=== PATIENT | male | born 1970 | race Caucasian/White ===

== ENCOUNTER 2019-06-16 07:12 | Day surgery (SDC) | payer BC ==
[2019-06-13 11:20] VITALS: BMI 39.5
[~2019-06-16 07:12] MED LIST: DEXAMETHASONE SOD PHOSPHATE 10 MG/ML 1 ML VIAL IV ONE; HEPARIN SODIUM,PORCINE 5,000 UNIT/ML 1 ML VIAL SQ ONE; HYDROmorphone 0.5 MG/0.5 ML SYRINGE IVP PRN; LACTATED RINGERS 1,000 ML IV SCH; MIDAZOLAM 2 MG/2 ML VIAL IV PRN; ONDANSETRON 4 MG/2 ML VIAL IVP ONE
[2019-06-16 07:34] VITALS: RESP 16
[2019-06-16] MEDS ORDERED: LIDOCAINE 1% 20 ML VIAL (10MG/ML) FOR IV START INTRADERMA ONE (07:43)
--- NOTE | 2019-06-16 08:52 | P.ANPRN ---
Procedure Note - Anesthesia - Nerve Block Performed Left Transversus Abdominis Single Time Out Performed: Yes Date of Procedure: 06/16/19 Procedure Start Time: : Procedure Stop Time: :32 Location of Patient Procedure: PreOp Indication: Acute Post-Operative Pain, Requested by Surgeon Specifically requested for management of pain by DrAyla: Joshua Mora Sedation Type: Sedate with meaningful contact maintained Preparation: Sterile Prep Position: Supine Catheter: None Needle Types: Pajunk Needle Gauge: 20 Ultrasound used to visualize needle placement: Yes Ultrasound used to observe medication spread: Yes Injectate: Other (see comment) (0.25% ropivacaine/0.5% lidocaine 30 mL) Adjunct: Epinephrine (see comment for dilution ratio) (1/200,000) Blood Aspirated: No Pain Paresthesia on Injection Noted: No Resistance on Injection: Normal Image Stored and Saved: Yes Events: Uneventful and Well Tolerated
--- NOTE | 2019-06-16 09:09 | P.GSHP ---
History of Present Illness H&P Date: 06/16/19 Chief Complaint: Left lower quadrant ventral hernia This a 48-year-old male who presents today for open repair of left lower quadrant ventral hernia. Patient developed tender mass in his left lower quadrant. Past Medical History Past Medical History: No Reported History History of Any Multi-Drug Resistant Organisms: None Reported Past Surgical History: Hernia Repair Past Anesthesia/Blood Transfusion Reactions: No Reported Reaction Past Psychological History: ADD/ADHD, Anxiety, Bipolar, Depression, PTSD Smoking Status: Never smoker Past Alcohol Use History: None Reported Past Drug Use History: None Reported - Past Family History Mother Family Medical History: No Reported History Medications and Allergies Home Medications Medication Instructions Recorded Confirmed Type Citalopram Hydrobromide [CeleXA] 40 mg PO HS 06/13/19 06/13/19 History Ziprasidone [Geodon] 80 mg PO HS 06/13/19 06/13/19 History lamoTRIgine [LaMICtal] 150 mg PO HS 06/13/19 06/13/19 History Allergies Allergy/AdvReac Type Severity Reaction Status Date / Time codeine Allergy Swelling Verified 06/16/19 07:27 lisdexamfetamine Allergy Swelling Verified 06/16/19 07:27 [From Vyvanse] Surgical - Exam Vital Signs Temp Pulse Resp BP Pulse Ox 98.6 F 70 16 119/71 94 L 06/16/19 07:33 06/16/19 07:33 06/16/19 07:33 06/16/19 07:33 06/16/19 07:33 - General well developed, well nourished, no distress - Eyes PERRL - ENT normal pinna - Neck no masses - Respiratory normal expansion - Cardiovascular Rhythm: regular - Abdomen Left lower quadrant ventral hernia. We'll perform open repair. Abdomen: soft, non tender Assessment and Plan Assessment: Left lower quadrant ventral hernia. We'll perform open repair.
[2019-06-16] MEDS ORDERED: ROPIVACAINE 5 MG/ML 30 ML VIAL ONE (09:14)
[2019-06-16] MEDS ORDERED: PROPOFOL 10 MG/ML 20 ML VIAL IV ONE (09:14)
[2019-06-16] MEDS ORDERED: LIDOCAINE 1%-EPI 1:100,000 20 ML VIAL ONE (09:14)
[2019-06-16] MEDS ORDERED: LIDOCAINE 1% INJ 10MG/ML (20 ML MDV) ONE (09:14)
[2019-06-16] MEDS ORDERED: GLYCOPYRROLATE 0.2 MG/ML 2 ML VIAL ONE (09:14)
[2019-06-16] MEDS ORDERED: fentaNYL (PF) 50 MCG/ML 2 ML AMP ONE (09:14)
[2019-06-16] MEDS ORDERED: NEOSTIGMINE 1 MG/ML 10 ML VIAL ONE (09:14)
[2019-06-16] MEDS ORDERED: MIDAZOLAM 2 MG/2 ML VIAL ONE (09:14)
[2019-06-16] MEDS ORDERED: SUCCINYLCHOLINE CHLORIDE 100 MG/5 ML SYR IV ONE (09:14)
[2019-06-16] MEDS ORDERED: KETOROLAC 30 MG/ML 1 ML VIAL ONE (09:14)
[2019-06-16 10:10] VITALS: TEMP 98.4
--- NOTE | 2019-06-16 10:12 | P.OP ---
Date of Procedure: 06/16/19 Preoperative Diagnosis: Left lower quadrant ventral hernia Postoperative Diagnosis: Left lower quadrant lipoma Procedure(s) Performed: Excision of left lower quadrant lipoma Anesthesia: CARMEN Surgeon: Joshua Mora Estimated Blood Loss (ml): 5 Pathology: other (Lipoma) Condition: stable Disposition: PACU Description of Procedure: The patient's placed on the operative table in the supine position. He received general anesthesia. His abdomen was prepped and draped in usual sterile fashion. The mass was located in the left lateral lower quadrant. The skin was incised over the mass using blunt and sharp dissection with cautery the subcutaneous tissues were divided and the mass was dissected free. The mass appeared to be a lipoma. The mass measured 5 x 10 x 5 cm. The lipoma was dissected free with cautery. The wound was hemostased. There is no bleeding seen. The skin was then closed interrupted 3-0 Monocryl suture. Dermabond was applied.
[2019-06-16] MEDS ORDERED: LACTATED RINGERS 1,000 ML IV ONE ×2 (10:19)
[2019-06-16 11:10] VITALS: BP 130/72; PULSE 63
== END 2019-06-16 11:23 | disposition home or self-care (01) ==
LOC: OR 07:12
PROVIDERS: ATTEND Surgery
DX: D17.1 Benign lipomatous neoplasm of skin and subcutaneous tissue of trunk (principal); F90.9 Attention-deficit hyperactivity disorder, unspecified type; F41.9 Anxiety disorder, unspecified; F31.9 Bipolar disorder, unspecified; F43.10 Post-traumatic stress disorder, unspecified; Z79.899 Other long term (current) drug therapy; Z88.5 Allergy status to narcotic agent; Z88.8 Allergy status to other drugs, medicaments and biological substances
CPT/HCPCS: 64486; 88304; 22903; J2250; J1644; J1100; J2710; J0690; J2405; J2001; J3010; J1885; J2795; J0330; J2704

== ENCOUNTER 2021-05-10 07:53 | Day surgery (SDC) | payer BC ==
[2021-05-07 13:36] VITALS: BMI 36.7
[~2021-05-10 07:53] MED LIST changes: -DEXAMETHASONE SOD PHOSPHATE 10 MG/ML 1 ML VIAL IV ONE; -HEPARIN SODIUM,PORCINE 5,000 UNIT/ML 1 ML VIAL SQ ONE; -HYDROmorphone 0.5 MG/0.5 ML SYRINGE IVP PRN; -MIDAZOLAM 2 MG/2 ML VIAL IV PRN; -ONDANSETRON 4 MG/2 ML VIAL IVP ONE
[2021-05-10 08:08] VITALS: TEMP 97.1
[2021-05-10] MEDS ORDERED: LACTATED RINGERS 1,000 ML IV ONE (08:23)
--- NOTE | 2021-05-10 08:43 | P.GSHP ---
History of Present Illness H&P Date: 05/10/21 Chief Complaint: Epigastric abdominal pain, screening colonoscopy Is a 50-year-old male who presents today for EGD and screening colonoscopy. He's had complaints of epigastric abdominal pain. Past Medical History Past Medical History: No Reported History History of Any Multi-Drug Resistant Organisms: None Reported Past Surgical History: Hernia Repair Past Anesthesia/Blood Transfusion Reactions: No Reported Reaction Past Psychological History: ADD/ADHD, Anxiety, Bipolar, Depression, PTSD Smoking Status: Current some day smoker Past Alcohol Use History: None Reported Additional Past Alcohol Use History / Comment(s): Patients states will have an occasional cigar. Past Drug Use History: Marijuana Additional Drug Use History / Comment(s): "Frequent Marijuana use." No use 24 hrs prior to procedure. - Past Family History Mother Family Medical History: No Reported History Father Family Medical History: Cancer Additional Family Medical History / Comment(s): Lymphatic cancer. Medications and Allergies Home Medications Medication Instructions Recorded Confirmed Type Citalopram Hydrobromide [CeleXA] 40 mg PO DAILY 06/13/19 05/07/21 History lamoTRIgine [LaMICtal] 150 mg PO DAILY 06/13/19 05/07/21 History Famotidine 40 mg PO DAILY PRN 05/07/21 05/07/21 History LORazepam 0.5 mg PO DAILY PRN 05/07/21 05/07/21 History Allergies Allergy/AdvReac Type Severity Reaction Status Date / Time codeine Allergy Swelling Verified 05/07/21 13:22 lisdexamfetamine Allergy Swelling Verified 05/07/21 13:22 [From Chris] Surgical - Exam Vital Signs Temp Pulse Resp BP Pulse Ox 97.1 F L 68 18 127/83 97 05/10/21 08:07 05/10/21 08:07 05/10/21 08:07 05/10/21 08:07 05/10/21 08:07 - General well developed, well nourished, no distress - Eyes PERRL - ENT normal pinna - Neck no masses - Respiratory normal expansion - Cardiovascular Rhythm: regular - Abdomen Abdomen: soft, non tender Assessment and Plan Assessment: Epigastric abdominal pain we'll perform EGD. We'll also perform screening colonoscopy.
[2021-05-10] MEDS ORDERED: PROPOFOL 10 MG/ML 20 ML VIAL IV ONE (08:48)
--- NOTE | 2021-05-10 09:08 | P.OP ---
Date of Procedure: 05/10/21 Preoperative Diagnosis: Epigastric pain Screening colonoscopy Postoperative Diagnosis: Antral gastritis Sliding hiatal hernia Mild esophagitis Normal colonoscopy Procedure(s) Performed: EGD Colonoscopy Anesthesia: MAC Surgeon: Joshua Mora Pathology: other (Antrum, esophagus) Condition: stable Disposition: PACU Description of Procedure: No PROCEDURE: The patient was placed on the endoscopy table in the lateral position. Digital rectal examination was performed which revealed no abnormalities. The prostate was symmetrical without nodules. Flexible colonoscope was then placed in the patient's anus and passed throughout the entire colon. The ileocecal valve was visualized. The cecum, ascending, transverse, descending and sigmoid colon were normal. The rectum was normal as well. There were no masses, polyps or diverticula noted in the entire colon. X, the gastroscope placed oropharynx passed in the esophagus into the stomach. Scope was then placed through the pylorus. The first and second portion of the duodenum appeared normal. Scope was then brought back the antrum and this appeared mildly inflamed. A biopsies performed. Scope was then retroflexed and the remainder of the stomach appeared normal. There was a moderate size sliding hiatal hernia. The GE junction was at 40 cm per the distal esophagus was minimal inflamed a biopsy performed. The proximal esophagus appeared normal. Scope was withdrawn for patient.
[2021-05-10 09:41] VITALS: BP 107/76; PULSE 63; RESP 20
== END 2021-05-10 09:46 | disposition home or self-care (01) ==
LOC: ORWHC2ENDO 07:53
PROVIDERS: ATTEND Surgery
DX: K29.50 Unspecified chronic gastritis without bleeding (principal); Z12.11 Encounter for screening for malignant neoplasm of colon; K44.9 Diaphragmatic hernia without obstruction or gangrene; K20.90 Esophagitis, unspecified without bleeding; F31.9 Bipolar disorder, unspecified; F43.10 Post-traumatic stress disorder, unspecified; F17.210 Nicotine dependence, cigarettes, uncomplicated; F41.9 Anxiety disorder, unspecified; F98.8 Other specified behavioral and emotional disorders with onset usually occurring in childhood and adolescence; Z88.5 Allergy status to narcotic agent
CPT/HCPCS: 88305; 43239; J2704; G0121

== ENCOUNTER → 2022-09-12 | Outpatient (CLI) | payer BC ==
--- NOTE | 2022-09-12 11:46 | CA ---
Exercise Stress Test Report Name: Mauricio Hernandez Exam Date: 09/12/2022 11:05 Exam Location: [facility] Stress Ht (in): 69 Wt (lb): 260 BSA: 2.31 Ordering Phys: Urvashi Goodrich DO Referring Phys: NUZHAT,, Technologist: Jim Melendrez Age: 51 Gender: M : 1970 Procedure CPT: Indications: R07.89 ICD-10 Codes: Patient History: CHEST PAIN, PALPITATIONS, CURRENT SMOKER (MARIJUANA DAILY) Medications: LOMITRIGINE, FLOMOTADINE Meds past 24 hrs: Pretest Chest Pain: STRESS TEST Yaw Protocol Exercise Duration (min:sec): 07:[address] Depressions (mm): Angina Score: Watkins Score: Resting HR (bpm): 79 Peak HR (bpm): 150 Resting BP (mmHg): 116 / 88 Peak BP (mmHg): 153 / 71 MPHR: 168 Target HR: 143 % MPHR: 89 METS: 8.5 Total Dose: Peak Dose: Atropine: Double Product: 84734 BP Response: Stress Termination: MAX EXERTION/TARGET HR Stress Symptoms: FATIGUE Stress Summary: ECG ANALYSIS Resting ECG: Normal sinus rhythm normal axis normal intervals Stress ECG: Patient exercised on Yaw protocol for 7 minutes achieving 8 mets 85% of predicted maximal heart rate without chest pain or diagnostic ST segment depression CONCLUSIONS Average exercise tolerance Negative stress test by EKG criteria Dr. Santi Mckenna MD (Electronically Signed) Final Date: 12 September 2022 11:45
== END | disposition home or self-care (01) ==
LOC: RADNMMAIN 10:39
PROVIDERS: ATTEND Family Medicine
DX: R07.89 Other chest pain (principal)
CPT/HCPCS: 93017

== ENCOUNTER 2023-03-12 09:17 | Day surgery (SDC) | payer BC ==
[2023-03-06 09:13] VITALS: BMI 39.0
[2023-03-12 09:32] VITALS: RESP 16; TEMP 97.9
[2023-03-12] MEDS ORDERED: PROPOFOL 10 MG/ML 20 ML VIAL IV ONE (09:55)
--- NOTE | 2023-03-12 10:00 | P.GSHP ---
History of Present Illness H&P Date: 03/12/23 Chief Complaint: Screening colonoscopy This a 52-year-old male presents today for screening colonoscopy. Patient denies a significant GI complaints. Past Medical History Past Medical History: GERD/Reflux Additional Past Medical History / Comment(s): rash lower back, arthritis in thumbs., family hx colon cancer. History of Any Multi-Drug Resistant Organisms: None Reported Past Surgical History: Hernia Repair Additional Past Surgical History / Comment(s): hernia repair x2- umbilical , lipomas Past Anesthesia/Blood Transfusion Reactions: No Reported Reaction Past Psychological History: ADD/ADHD, Anxiety, Bipolar, Depression, PTSD, Schizoaffective Disorder Smoking Status: Current some day smoker, Vaper Past Alcohol Use History: Rare Additional Past Alcohol Use History / Comment(s): occasional cigar. Past Drug Use History: Marijuana Additional Drug Use History / Comment(s): current marijuana use - Past Family History Mother Family Medical History: No Reported History Additional Family Medical History / Comment(s): pts grandfather=colon cancer Father Family Medical History: Cancer Additional Family Medical History / Comment(s): Lymphatic cancer.-due to chemical spill Medications and Allergies Home Medications Medication Instructions Recorded Confirmed Type lamoTRIgine [LaMICtal] 150 mg PO W/SUPPER 06/13/19 03/06/23 History Famotidine 40 mg PO W/SUPPER PRN 05/07/21 03/06/23 History LORazepam [Ativan] 1 mg PO DIRECTED PRN 03/06/23 03/06/23 History Pediatric Multivitamin No.30 1 tab PO DAILY 03/06/23 03/06/23 History [Multivitamin Children's Gummies] Venlafaxine HCl 75 mg PO W/SUPPER 03/06/23 03/06/23 History risperiDONE 0.5 mg PO W/SUPPER 03/06/23 03/06/23 History Allergies Allergy/AdvReac Type Severity Reaction Status Date / Time codeine Allergy Facial Verified 03/12/23 09:28 Swelling lisdexamfetamine Allergy Swelling Verified 03/12/23 09:28 [From Vyvanse] of feet Surgical - Exam Vital Signs Temp Pulse Resp BP Pulse Ox 97.9 F 78 16 137/79 96 03/12/23 09:31 03/12/23 09:31 03/12/23 09:31 03/12/23 09:31 03/12/23 09:31 - General well developed, well nourished, no distress - Eyes PERRL - ENT normal pinna - Neck no masses - Respiratory normal expansion - Cardiovascular Rhythm: regular - Abdomen Abdomen: soft, non tender Assessment and Plan Assessment: We'll perform screening colonoscopy
--- NOTE | 2023-03-12 10:13 | P.OP ---
Date of Procedure: 03/12/23 Preoperative Diagnosis: Screening colonoscopy Postoperative Diagnosis: Normal colonoscopy Procedure(s) Performed: Colonoscopy Anesthesia: CARMEN Surgeon: Joshua Mora Pathology: none sent Condition: stable Disposition: PACU Description of Procedure: PROCEDURE: The patient was placed on the endoscopy table in the lateral position. Digital rectal examination was performed which revealed no abnormalities. The prostate was symmetrical without nodules. Flexible colonoscope was then placed in the patient's anus and passed throughout the entire colon. The ileocecal valve was visualized. The cecum, ascending, transverse, descending and sigmoid colon were normal. The rectum was normal as well. There were no masses, polyps or diverticula noted in the entire colon. SUMMARY OF FINDINGS: Normal colonoscopy.
[2023-03-12 10:49] VITALS: BP 120/74; PULSE 71
== END 2023-03-12 10:50 | disposition home or self-care (01) ==
LOC: ORWHC2ENDO 09:17
PROVIDERS: ATTEND Surgery
DX: Z12.11 Encounter for screening for malignant neoplasm of colon (principal); K21.9 Gastro-esophageal reflux disease without esophagitis; F41.9 Anxiety disorder, unspecified; F17.200 Nicotine dependence, unspecified, uncomplicated; Z80.0 Family history of malignant neoplasm of digestive organs; Z88.5 Allergy status to narcotic agent; Z79.899 Other long term (current) drug therapy
CPT/HCPCS: 45378; J2704

== ENCOUNTER 2024-09-05 09:11 | Day surgery (SDC) | payer BC, MEDICARE ==
[2024-08-31 15:43] VITALS: BMI 42.5
[~2024-09-05 09:11] MED LIST changes: +LIDOCAINE 1% (10MG/ML) FOR IV START INTRADERMA PRN
[2024-09-05] MEDS: LACTATED RINGERS 500 ML IV ONE (09:20)
[2024-09-05 09:34] VITALS: TEMP 97.4
[2024-09-05] MEDS ORDERED: PROPOFOL 10 MG/ML 20 ML VIAL IV ONE (09:40)
[2024-09-05] MEDS ORDERED: LIDOCAINE 1% INJ 10MG/ML (20 ML MDV) ONE (09:40)
--- NOTE | 2024-09-05 10:09 | P.PCN ---
Date of Procedure: 09/05/24 Preoperative Diagnosis: GERD Screening for colon cancer Postoperative Diagnosis: Gastritis Hiatal hernia Diverticulosis Procedure(s) Performed: EGD with biopsy Colonoscopy Anesthesia: MAC Surgeon: Patrick Zaragoza Pathology: other (Biopsies of duodenum, antrum, GE junction) Condition: stable Disposition: same day Indications for Procedure: 53-year-old male presents today for upper and lower endoscopy. He has history of gastroesophageal reflux disease and is being treated with famotidine. He has a family history of colon polyps. Plan is for upper and lower endoscopy. Risks, benefits and alternatives were provided to the patient. All questions answered. Operative Findings: Gastritis Hiatal hernia Diverticulosis Description of Procedure: The patient was brought into the endoscopy suite and placed in left lateral decubitus position. Adequate sedation was achieved using conscious sedation. A bite-block was placed and an endoscope was placed in the oropharynx and advanced under endoscopic visualization. The endoscope was advanced through the esophagus into the stomach, through the gastric antrum and in through the pylorus. The third portion of duodenum was visualized. The endoscope was then slowly withdrawn. The first portion of duodenum was noted to have mild inflammatory changes. Biopsies were taken. The antrum was noted to have noted to have mild inflammatory changes. Biopsies were taken. The gastric body distended normally and the gastric folds appeared normal and flattened with insufflation. A retroflexed view of the fundus and GE junction revealed a mild hiatal hernia. GE junction appeared normal and biopsies were taken. The esophagus appeared endoscopically normal. Excess air was removed and the scope was withdrawn. The patient was brought to the endoscopy suite and placed in left lateral decubitus position and adequate sedation was achieved using conscious sedation. Digital rectal exam was performed and mild internal hemorrhoids were palpated. An endoscope was then placed in the rectum and advanced to the cecum as identified by landmarks including the appendiceal orifice and the ileocecal valve. The prep was good. The colonoscope was then slowly withdrawn, examining for any mucosal abnormalities. The cecum, ascending, transverse, descending and sigmoid colon were visualized adequately. There were no large neoplastic lesions noted throughout the colon. No obvious polyps were noted throughout the colon. Mild amount of diverticulosis was noted in the sigmoid colon. Hemostasis was maintained. Retroflexion was performed in the rectum and internal hemorrhoids. Excess air was removed, the colonoscope withdrawn and the procedure terminated. The patient was then transferred to the recovery unit in stable condition. Repeat colonoscopy should be performed in 5 years.
[2024-09-05 10:13] VITALS: RESP 18
[2024-09-05 10:25] VITALS: BP 119/82; PULSE 65
== END 2024-09-05 10:53 | disposition home or self-care (01) ==
LOC: ORWHC2ENDO 09:11
PROVIDERS: ATTEND Surgery
DX: Z12.11 Encounter for screening for malignant neoplasm of colon (principal); K29.50 Unspecified chronic gastritis without bleeding; K31.89 Other diseases of stomach and duodenum; K44.9 Diaphragmatic hernia without obstruction or gangrene; K57.30 Diverticulosis of large intestine without perforation or abscess without bleeding; K21.00 Gastro-esophageal reflux disease with esophagitis, without bleeding; M19.90 Unspecified osteoarthritis, unspecified site; F41.9 Anxiety disorder, unspecified; F31.9 Bipolar disorder, unspecified; F43.10 Post-traumatic stress disorder, unspecified; E66.01 Morbid (severe) obesity due to excess calories; Z83.719 Family history of colon polyps, unspecified; F12.90 Cannabis use, unspecified, uncomplicated; Z79.899 Other long term (current) drug therapy; Z98.890 Other specified postprocedural states; Z88.5 Allergy status to narcotic agent; Z88.8 Allergy status to other drugs, medicaments and biological substances
CPT/HCPCS: 88305; 43239; J2003; J2704; G0105; 45378